=== PATIENT | male | born 1965 | race Caucasian/White ===

== ENCOUNTER 2020-07-07 17:05 | Emergency (ER) | payer OTHER ==
[~2020-07-07] VITALS: Ht 170.2 cm; Wt 89.0 kg
[~2020-07-07 17:05] MED LIST: AF-MIGRAIN1 PO; ASPIRIN EC81 MG PO; DOCUSATE SOD100 M2 PO; KEPPRA500 M2 PO; KEPPRA750 M2 PO; LIPITOR10 MG PO; LISINOPRIL20 MG PO; LORATADINE10 M1 PO; PERPHENAZINE4 MG PO; PRILOSEC20 MG PO; TRAZODONE50 MG PO; ZANTAC150 M1 PO
[2020-07-07 17:48] LABS: HEMATOCRIT 46.8 % (39.0-50.0); HEMOGLOBIN 14.8 g/dl (14.0-18.0); IMMATURE GRANULOCYTES 0.6 % (0.0-5.0); MEAN CELL VOLUME 93.8 fL CALC (80.0-100.0); MEAN CORPUSCULAR HGB 29.7 pG CALC (26.0-32.0); MEAN CORPUSCULAR HGB CONC 31.6 g/dL CAL (32.0-36.0); NEUT# 6.31 thou/uL (1.82-7.42); RED BLOOD COUNT 4.99 mill/uL (4.70-6.10); RED CELL DISTRI WIDTH 12.7 % (11.5-15.5)
[2020-07-07 17:51] LABS: GFR > 60 ML/MIN (>=60 (CALC)); GFR FOR AFR.AMER. > 60 ML/MIN (>=60 (CALC))
[2020-07-07 18:26] LABS: ALBUMIN 4.5 g/dL (3.2-5.0); ALKALINE PHOSPHATASE 57 u/l (38-126); ANION GAP 13 (6-22 (CALC)); BILIRUBIN, TOTAL 0.4 mg/dL (0.0-1.4); BUN 17 mg/dL (9-20); BUN/CREATININE RATIO 18 (12-20 (CALC)); CARBON DIOXIDE 28 mmol/l (22-30); CHLORIDE 101 mmol/l (95-108); CREATININE 0.9 mg/dL (0.7-1.3); GFR > 60 ML/MIN (>=60 (CALC)); GFR FOR AFR.AMER. > 60 ML/MIN (>=60 (CALC)); POTASSIUM 4.2 mmol/l (3.5-5.1); SGOT/AST 34 u/l (17-59); SODIUM 139 mmol/l (137-146); TOTAL PROTEIN 7.8 g/dL (6.3-8.2)
[2020-07-07 19:07] LABS: ACT PARTIAL THROMBO TIME 25.2 SECONDS (20.0-32.5)
[2020-07-07] MEDS ORDERED: METOPROL TAR25 MG PO (19:09)
[2020-07-07 21:25] VITALS: BP 172/91
== END 2020-07-07 22:09 | DRG 300 ==
LOC: ED 17:05
PROVIDERS: Family Medicine
DX: I70.202 Unspecified atherosclerosis of native arteries of extremities, left leg (principal); L03.116 Cellulitis of left lower limb; I10 Essential (primary) hypertension; Z20.822 Contact with and (suspected) exposure to COVID-19
CPT/HCPCS: J1644; J1956; Q9967

== ENCOUNTER 2022-03-31 11:03 | Emergency (ER) | payer OTHER ==
[~2022-03-31] VITALS: Ht 170.2 cm; Wt 107.0 kg
[~2022-03-31 11:03] MED LIST changes: +METOPROL TAR25 MG PO
[2022-03-31 11:12] VITALS: BP 173/94
[2022-03-31 11:52] LABS: HEMATOCRIT 45.7 % (39.0-50.0); HEMOGLOBIN 14.3 g/dl (14.0-18.0); IMMATURE GRANULOCYTES 0.2 % (0.0-5.0); MEAN CELL VOLUME 87.9 fL CALC (80.0-100.0); MEAN CORPUSCULAR HGB 27.5 pG CALC (26.0-32.0); MEAN CORPUSCULAR HGB CONC 31.3 g/dL CAL (32.0-36.0); NEUT# 6.33 thou/uL (1.82-7.42); RED BLOOD COUNT 5.2 mill/uL (4.70-6.10)
[2022-03-31 12:04] LABS: ALBUMIN 4.2 g/dL (3.2-5.0); ALKALINE PHOSPHATASE 59 u/l (38-126); ANION GAP 15 (6-22 (CALC)); BILIRUBIN, TOTAL 0.4 mg/dL (0.0-1.4); BUN 28 mg/dL (9-20); BUN/CREATININE RATIO 32 (12-20 (CALC)); CARBON DIOXIDE 27 mmol/l (22-30); CHLORIDE 103 mmol/l (95-108); CREATININE 0.9 mg/dL (0.7-1.3); ETHYL ALCOHOL 0 mg/dl (0-30); GFR FOR AFR.AMER. > 60 ML/MIN (>=60 (CALC)); GFR OTHER RACES > 60 ML/MIN (>=60 (CALC)); POTASSIUM 4.2 mmol/l (3.5-5.1); SGOT/AST 30 u/l (17-59); SODIUM 141 mmol/l (137-146); TOTAL PROTEIN 7.1 g/dL (6.3-8.2)
[2022-03-31 13:54] VITALS: BP 173/94
== END 2022-03-31 14:04 | disposition home or self-care (01) | DRG 312 ==
LOC: ED 11:03
PROVIDERS: Emergency Medicine
DX: R55 Syncope and collapse (principal); R56.9 Unspecified convulsions

== ENCOUNTER 2023-08-09 16:53 | Observation (INO) | payer OTHER ==
[2023-08-09] VITALS (23 sets, daily range): BP systolic 90–209; BP diastolic 51–175
[~2023-08-09] VITALS: Ht 170.2 cm; Wt 91.0 kg
[~2023-08-09 16:53] MED LIST changes: +ATORVASTATIN CA20 MG PO; -LIPITOR10 MG PO; -LISINOPRIL20 MG PO; +OMEPRAZOLE10 MG PO; -PRILOSEC20 MG PO; +ZESTRIL10 M1 PO
--- NOTE | 2023-08-09 16:57 | NUR ---
PT TO ROOM VIA EMS, POSTICAL UPON ARRIVAL
[2023-08-09] MEDS ORDERED: MIDAZOLAM HCL 2 MG/2 ML VIAL IV ONE (17:10)
[2023-08-09 17:20] LABS: URINE BILIRUBIN - DIPSTICK Negative (NEGATIVE); URINE BLOOD DIPSTICK Negative (NEGATIVE); URINE COLOR Yellow; URINE GLUCOSE - DIPSTICK Negative (NEGATIVE); URINE KETONE Negative (NEGATIVE); URINE LEUK ESTERASE Negative (NEGATIVE); URINE NITRITE - DIPSTICK Negative (Negative); URINE PH 6.5 (4.5-8.0); URINE PROTEIN - DIPSTICK Negative (NEG-TRACE); URINE UROBILINOGEN - DIPSTICK 0.2 E.U./dL (0.2)
[2023-08-09 17:20] LABS: BASO% 0.5 % (0-3); EOS% 3.7 % (0-8); HEMATOCRIT 43.1 % (39.0-50.0); HEMOGLOBIN 14.3 g/dl (14.0-18.0); IMMATURE GRANULOCYTES 0.3 % (0.0-5.0); LYMPH% 25.8 % (15-41); MEAN CELL VOLUME 87.1 fL CALC (80.0-100.0); MEAN CORPUSCULAR HGB 28.9 pG CALC (26.0-32.0); MEAN CORPUSCULAR HGB CONC 33.2 g/dL CAL (32.0-36.0); MONO% 6.8 % (2-13); NEUT# 5.99 thou/uL (1.82-7.42); NEUT% 62.9 % (42-76); RED BLOOD COUNT 4.95 mill/uL (4.70-6.10); RED CELL DISTRI WIDTH 13.8 % (11.5-15.5)
--- NOTE | 2023-08-09 17:25 | NUR ---
pt had 3 more seizures, medicated with versed and keppra, seizers have stopped, nasal trumpet placed by Dr. Mcdonald.
[2023-08-09 17:37] LABS: ALBUMIN 4.3 g/dL (3.2-5.0); ALKALINE PHOSPHATASE 47 u/l (38-126); BUN 23 mg/dL (9-20); BUN/CREATININE RATIO 33 (12-20 (CALC)); CARBON DIOXIDE 29 mmol/l (22-30); CHLORIDE 103 mmol/l (95-108); CREATININE 0.7 mg/dL (0.7-1.3); ETHYL ALCOHOL 0 mg/dl (0-30); GFR FOR AFR.AMER. > 60 ML/MIN (>=60 (CALC)); GFR OTHER RACES > 60 ML/MIN (>=60 (CALC)); SGOT/AST 35 u/l (17-59); SODIUM 138 mmol/l (137-146); TOTAL PROTEIN 6.9 g/dL (6.3-8.2)
[2023-08-09 17:39] LABS: ANION GAP 10 (6-22 (CALC)); BILIRUBIN, TOTAL 0.6 mg/dL (0.2-1.3); POTASSIUM 4.4 mmol/l (3.5-5.1)
--- NOTE | 2023-08-09 18:18 | NUR ---
pt back to room, no apparent distress, no further seizures, awake and oriented
[2023-08-09] MEDS ORDERED: diazePAM 10 MG/2 ML VIAL IV ONE (18:30)
--- NOTE | 2023-08-09 18:34 | NUR ---
SZ ACTIVITY LASTING <20 SECONDS, GUARDS AT BEDSIDE, MD NOTIFIED, MEDICATION ORDERED AND ADMIN
[2023-08-09] MEDS ORDERED: SODIUM CHLORIDE 0.9% 1,000 ML IV ONE (18:40)
--- NOTE | 2023-08-09 18:50 | NUR ---
REPORT RECEIVED FROM Sarah NEGRO RN
--- NOTE | 2023-08-09 19:00 | NUR ---
PATIENT AWAKE AND ALERT, GUARDS X2 AT BEDSIDE.
[2023-08-09] MEDS ORDERED: MAGNESIUM HYDROXIDE 30 ML UDC PO PRN (20:00)
[2023-08-09] MEDS ORDERED: ACETAMINOPHEN 325 MG/TAB PO PRN (20:00)
[2023-08-09] MEDS ORDERED: SODIUM CHLORIDE 0.9% 1,000 ML IV PRN (20:00)
[2023-08-09] MEDS ORDERED: diazePAM 10 MG/2 ML VIAL ONE (20:05)
[2023-08-09] MEDS ORDERED: diazePAM 10 MG/2 ML VIAL IV PRN (20:10)
--- NOTE | 2023-08-09 20:15 | NUR ---
PATIENT EXPERIENCING SEIZURE LIKE ACTIVITY. EYES CLOSED AND UPPER BODY SHAKING, ARMS SUSTAINED ABOVE BELLY AND SHAKING. WIRTTER GRABBED NURSES HAND, PATIENT DID NOT DROP HAND DOWN AND GRABBED HAND. PATIENT STARTED SHAKING WHEN NURSE ADMINISTERED VALIUM, STOPPED ONCE VALIUM ADMINISTERED.
[2023-08-09] MEDS ORDERED: traZODone HCL 50 MG/TAB PO SCH (21:00)
[2023-08-09] MEDS ORDERED: LevETIRAcetam 500 MG/TAB PO SCH (21:00)
[2023-08-09] MEDS ORDERED: ENOXAPARIN SODIUM 40 MG/0.4 ML SYR SC SCH (21:00)
[2023-08-09] MEDS ORDERED: DOCUSATE CALCIUM 240 MG/CAP PO SCH (21:00)
--- NOTE | 2023-08-09 21:39 | NUR ---
PATIENT RESTING IN BED, GUARDS AT BEDSIDE.
--- NOTE | 2023-08-09 22:00 | NUR ---
REPORT CALLED TO JUAN HILL
--- NOTE | 2023-08-09 22:34 | NUR ---
PATIENT TRASNPORTED TO ROOM 281, GUARDS X2 AT BEDSIDE. PATIENT CARE HANDED OVER TO JUAN HILL
--- NOTE | 2023-08-09 22:39 | NUR ---
Took patient blood glucose when arrived 96 and the nurse was notified.
--- NOTE | 2023-08-09 23:13 | NUR ---
PT ARRIVED TO THE UNIT FROM THE ED AND WAS ABLE TO TRANSFEER SELF FROM STRETCHER TO THE BED. ALERT AND ORIENTED X 3 AND ABLE TO MAKE NEEDS KNOWN. PT SAYING THAT HE IS GOING TO AND SAYING THAT HE WANTS TO GO BACK TO THE NURSING HOME GO [place] AT THE FACILITY. 2 OFFICERS AT THE BEDSIDE AND PT NOTED ATTEMPTING TO PULL IV'S OUT. REFUSED TO TAKE MEDICATIONS EVEN THE SEIZURE MEDICATIONS. EDUCATION WAS DONE WITH PT ON THE REASON FOR THE MEDICATIONS AND HIS ADMITTING DIAGNOSIS AND HE CONTINUES TO DECLINE. HOB ELEVATED AND O2 ON 2LNC WITH NO RESPIRATORY DISTRESS NOTED. lUNG SOUNS ARE CLEAR. ABDOMEN DISTENDED WITH BOWEL SOUNDS ACTIVE IN ALL ABDOMINAL BLUNT. NOTED WITH SKIN ABRASION TO LEFT LOWER LEG THAT IS COOL TO TOUCH AND RENESS NOTED AROUND AREA. ASREA HAS A BLAXK CENTER NOTED. WILL CONTINUE TO OBSERVE
[2023-08-10] VITALS (10 sets, daily range): BP systolic 106–147; BP diastolic 55–90
--- NOTE | 2023-08-10 01:11 | NUR ---
pt is denies bladder discomfort at this time and declining to ambulate to toilet to void. offered urinal and privacy and he declined. no distress noted. will continue to observe.
--- NOTE | 2023-08-10 02:02 | NUR ---
MICKY AT BEDSIDE CALLED THIS NURSE TO THE ROOM AND PT HAVING SEIZURE LIKE MOVEMENTS X 2 DIFFERENT OCCASSIONS LASTING LESS THAN 2 MINUTES EACH TIME. 5MG OF VALIUM GIVEN ORDERED AND EFFECTIVE. BP 145/81 PULSE 92 RESP 18 TEMPT 98.1 AND O2 SAT 96% ROOM AIR. HOB ELEVATED AND WILL CONTINUE TO OBSERVE. POST ASSESSMENT PERRLA AND WEAK HAND GYROSCOPE REPAIRER. WILL CONTINUE TO OBSERVE.
--- NOTE | 2023-08-10 02:18 | NUR ---
PT NOTED SITTING UP IN BED EATING RISA CRAKERS AND COMPLAINING HEADACHE. NO RESPIRATORY DISTRESS NOTED. HEART RHTHYM REGULAR. CALL LIGHT WITHIN REACH. ISAC AT BEDSIDE . WILL CONTINUE TO OBSERVE.
[2023-08-10 05:26] LABS: BASO% 0.7 % (0-3); EOS% 5.8 % (0-8); HEMATOCRIT 46.8 % (39.0-50.0); HEMOGLOBIN 14.8 g/dl (14.0-18.0); IMMATURE GRANULOCYTES 0.1 % (0.0-5.0); LYMPH% 31.5 % (15-41); MEAN CELL VOLUME 89.5 fL CALC (80.0-100.0); MEAN CORPUSCULAR HGB 28.3 pG CALC (26.0-32.0); MEAN CORPUSCULAR HGB CONC 31.6 g/dL CAL (32.0-36.0); MONO% 8.9 % (2-13); NEUT# 4.44 thou/uL (1.82-7.42); RED BLOOD COUNT 5.23 mill/uL (4.70-6.10)
[2023-08-10 05:54] LABS: ALBUMIN 3.9 g/dL (3.2-5.0); ALKALINE PHOSPHATASE 55 u/l (38-126); ANION GAP 9 (6-22 (CALC)); BILIRUBIN, TOTAL 0.5 mg/dL (0.2-1.3); BUN 18 mg/dL (9-20); BUN/CREATININE RATIO 31 (12-20 (CALC)); CARBON DIOXIDE 30 mmol/l (22-30); CHLORIDE 104 mmol/l (95-108); CREATININE 0.6 mg/dL (0.7-1.3); GFR FOR AFR.AMER. > 60 ML/MIN (>=60 (CALC)); GFR OTHER RACES > 60 ML/MIN (>=60 (CALC)); MAGNESIUM 2.1 mg/dL (1.6-2.3); POTASSIUM 3.6 mmol/l (3.5-5.1); SGOT/AST 26 u/l (17-59); SODIUM 140 mmol/l (137-146); TOTAL PROTEIN 6.1 g/dL (6.3-8.2)
--- NOTE | 2023-08-10 06:00 | NUR ---
pt ambulated to the toilet with no complications noted. pt is alert and oriented and talking with no complications noted. No seizure activity noted. Normal saline running at 100ml/hr and tolerating well. will continue to observe
--- NOTE | 2023-08-10 07:38 | NUR ---
patient glucose level is 104.
--- NOTE | 2023-08-10 08:00 | NUR ---
pt awake in bed eating breakfast; no apparent distress noted; guards x2 at bedside; assessment completed at this time; pt alert and oriented; admits to chest pain, will medicate; no n/v noted; no seizure activity noted; resp even and unlabored; lungs clear; hr reg; strong pulses; tele monitor intact; abd soft/distended with bs present; #22 to rfa patent with ivf infusing without complication; #20 to lac saline locked; plan of care/ meds explained; call light within reach
--- NOTE | 2023-08-10 08:48 | NUR ---
comic book writer informed of pt having a seizure; pt noted holding both side rails with upper extremities shaking; seizure lasted approx 50 seconds, witnessed per staff; per facility guards, seizure approx 3 minutes; bp stable 124/91, hr 90s, o2 sat 99%; pt nonverbal with this comic book writer at present; Marissa, DEVICE TEST ENGINEER informed and at bedside to assess pt; pt noted nodding head to yes and no with DEVICE TEST ENGINEER; pt admits to chest pain from "CPR"; call light within reach; will continue to monitor
[2023-08-10] MEDS ORDERED: ASPIRIN EC 81 MG/TAB PO SCH (09:00)
[2023-08-10] MEDS ORDERED: METOPROLOL TARTRATE 25 MG/TAB PO SCH ×2 (09:00→21:00)
[2023-08-10] MEDS ORDERED: LISINOPRIL 20 MG/TAB PO SCH (09:00)
[2023-08-10] MEDS ORDERED: ATORVASTATIN CALCIUM 10 MG/TAB PO SCH (09:00)
--- NOTE | 2023-08-10 12:20 | NUR ---
awake in bed eating lunch; no apparent distress noted; no seizure activity noted; guards x2 at bedside; iv intact and patent; call light within reach; will continue to monitor
[2023-08-10] MEDS ORDERED: POTASSIUM CHLORIDE 20 MEQ/TAB PO SCH (13:00)
--- NOTE | 2023-08-10 13:05 | NUR ---
summoned to room; per guards pt started with "shaking" at 1251 which didn't last long; pt was then trying to get out of bed but kept falling back; no seizure activity noted per staff (this conventional underwriter and Bel Aleman); pt repositioned in bed; instructed on bedrest due to "seizures"; bp 121/66, hr 74, o2 sat 96; again, no shaking/seizure like activity upon arrival to room; pt nonverbal with staff; no urinary incont noted; call light within reach; will continue to monitor
--- NOTE | 2023-08-10 13:21 | NUR ---
Suzie Pitts called this designer/writer; update provided
[2023-08-10] MEDS ORDERED: MELATONIN MAXIM10 MG PO (14:00)
[2023-08-10] MEDS ORDERED: CYMBALTA60 MG PO (14:00)
[2023-08-10] MEDS ORDERED: [UNRECOGNIZED DRUG - OTHER] PO (14:01)
[2023-08-10] MEDS ORDERED: TUMS500 MG PO (14:02)
[2023-08-10] MEDS ORDERED: MAXZIDE-25MG1 COMBO PO (14:03)
[2023-08-10] MEDS ORDERED: METFORMIN500 M2 PO (14:04)
[2023-08-10] MEDS ORDERED: VENTOLIN HFA108 MCG IN (14:04)
[2023-08-10] MEDS ORDERED: BENADRYL 25MG C25 MG PO (14:05)
--- NOTE | 2023-08-10 14:32 | NUR ---
Dr Jones notified of pt complaints of chest pain. pt request "something stronger"; order received
--- NOTE | 2023-08-10 15:00 | NUR ---
[facility] neuro consult completed;
--- NOTE | 2023-08-10 16:00 | NUR ---
awake in bed; continues with complaints of chest pain; iv intact; guards x2 at bedside; call light within reach; will continue to monitor
[2023-08-10] MEDS ORDERED: oxyCODONE 5MG/ ACETAMINOPHEN 325MG TAB PO SCH (16:45)
[2023-08-10] MEDS ORDERED: LevETIRAcetam 500 MG/TAB PO SCH (21:00)
[2023-08-10] MEDS ORDERED: ATORVASTATIN CALCIUM 20 MG/TAB PO SCH (21:00)
[2023-08-11 05:32] VITALS: BP 155/82
[2023-08-11 06:54] VITALS: BP 128/72
--- NOTE | 2023-08-11 08:00 | NUR ---
pt awake in bed; no apparent distress noted; pt offers complaints of left lat chest pain, states from "CPR"; tylenol offered; assessment completed at this time; pt alert and oriented; no n/v noted; resp even and unlabored; lungs clear; skin color wnl; ra; hr reg; tele monitor intact; abd soft/distended with bs present; no bm noted per show card writer; no urine to inspect at this time; #20 to lac saline locked; #20 to rfa patent with ivf infusing without complication; scab noted to left lower graff; guards x2 at bedside; plan of care/ discharge explained; call light within reach; will continue to monitor
--- NOTE | 2023-08-11 08:05 | NUR ---
guard informed staff of seizure activity; Bel Aleman CNA at bedside; no seizure/shaking noted; pt able to answer this writers questions; admits to "having a seizure; pt is not post ictal; no urinary incontinence noted; no tongue biting noted; pt request urinal and able to void 300cc clear yellow urine immed post seizure; guard informed to notify staff if seizure reoccurs; seizure explained per guards as upper extremity shaking while holding siderails and eyes twitching; will continue to monitor
--- NOTE | 2023-08-11 08:30 | NUR ---
Dr Jones on unit; informed of seizure like activity; MD at bedside to assess pt; discharge as planned
[2023-08-11 09:06] VITALS: BP 128/72
--- NOTE | 2023-08-11 12:00 | NUR ---
pt awake in bed eating lunch; no apparent distress noted; pt offers no complaints; tele monitor intact; guards x2 at bedside; call light within reach; will continue to monitor
--- NOTE | 2023-08-11 13:00 | NUR ---
multple attempt have been made to contact [facility]; phone line busy/ no phone access; guards unable to reach facility d/t phone service disconnection; will continue to monitor
--- NOTE | 2023-08-11 13:54 | NUR ---
pt with complaints of coban dressing to tight to iv sites; upon cutting coban, pt jumped creating a small lac to lfa skin; cleansed with betadine and dressing place; will continue to monitor
--- NOTE | 2023-08-11 15:25 | NUR ---
[facility] called per nursing sup Sarah Parekh RN in regards to phone lines down with need to contact facility; received call from Suzie Nickerson; report provided; pt to be discharge within next 5 to 10 minutes; packet will be sent
--- NOTE | 2023-08-11 15:54 | NUR ---
Discharge instructions given. Patient verbalizes understanding of same. Discharged [facility] stable condition [facility]. All belongings sent with pt.
== END 2023-08-11 15:54 | disposition designated cancer center or children's hospital (05) | DRG 101 ==
LOC: ED 16:53 → ED-I 18:40 → ED 19:03 → ED-I 19:04 → MS2 21:32
PROVIDERS: Emergency Medicine; Nurse Practitioner Family; ADMIT Student in an Organized Health Care Education/Training Program; ATTEND Student in an Organized Health Care Education/Training Program
DX: G40.909 Epilepsy, unspecified, not intractable, without status epilepticus (principal); I10 Essential (primary) hypertension; E11.9 Type 2 diabetes mellitus without complications; R07.89 Other chest pain
CPT/HCPCS: G0378; J1650; J1953